=== PATIENT | male | born 1975 | race Caucasian/White ===

== ENCOUNTER 2020-12-21 22:22 | Emergency (ER) | payer MEDICARE ==
[2020-12-21] MEDS ORDERED: Bupivacaine PF 0.5% 30 ML VIAL ONE (22:48)
== END 2020-12-21 23:36 | disposition home or self-care (01) ==
LOC: CSHERS 22:22
DX: K02.9 Dental caries, unspecified (principal); I10 Essential (primary) hypertension; Z79.01 Long term (current) use of anticoagulants; Z79.899 Other long term (current) drug therapy
CPT/HCPCS: 64400; S0020